=== PATIENT | male | born 1935 | race Caucasian/White ===

== ENCOUNTER 2020-05-03 20:54 | Inpatient (IN) ==
[2020-05-03] MEDS ORDERED: Naloxone 0.4 MG/ML INJ IVP PRN (23:05)
[2020-05-04] MEDS: Pantoprazole 40 MG in 0.9 % Sodium Chloride Mini Bag 100 ML IVC SCH ×5 (00:11→21:03)
[2020-05-04 01:22] LABS: Basophils % 0.7 %; Eosinophils # 0.3 K/mcL (0.0-0.6); Eosinophils % 4.7 %; Hematocrit 27.8 % (37.5-50.1); Hemoglobin 8.8 g/dL (12.9-16.9); Immature Granulocytes % 0.3 % (0-4); Lymphocytes # 1.6 K/mcL (0.6-4.6); Lymphocytes % 26.3 %; Mean Corpuscular HGB Conc 31.7 g/dL (31.6-35.5); Mean Corpuscular Volume 97.9 fL (83.0-100.0); Mean Platelet Volume 10.4 fL (9.4-12.4); Monocytes # 0.6 K/mcL (0.0-1.3); Monocytes % 10.7 %; Neutrophils # 3.4 K/mcL (1.6-8.9); Platelet Count 126 K/mcL (140-400); Red Blood Count 2.84 M/mcL (4.19-5.50); Red Cell Distribution Width 13.3 % (11.5-14.5); Segmented Neutrophils % 57.3 %
[2020-05-04 01:38] LABS: INR 12.5; Prothrombin Time 142.2 Seconds (9.4-12.1)
[2020-05-04 01:43] LABS: Albumin 3.1 g/dL (3.5-5.7); Albumin/Globulin Ratio 1.4 (1.1-2.2); Bilirubin,Total 1.6 mg/dL (0.3-1.0); Calcium 8.6 mg/dL (8.6-10.3); Globulin 2.2 g/dL (2.4-3.5); Magnesium 1.8 mg/dL (1.6-2.6); Phosphorous 2.1 mg/dL (2.7-4.5); Potassium 4.2 mEq/L (3.5-5.1); Total Protein 5.3 g/dL (6.4-8.9)
[2020-05-04 04:25] LABS: Adenovirus Not Detected (Not Detect); Bordetella Pertussis Not Detected (Not Detect); Chlamydophila pneumoniae Not Detected (Not Detect); Coronavirus 229E Not Detected (Not Detect); Coronavirus HKU1 Not Detected (Not Detect); Coronavirus NL63 Not Detected (Not Detect); Coronavirus OC43 Not Detected (Not Detect); Human Metapneumovirus Not Detected (Not Detect); Human Rhinovirus/Enterovirus Not Detected (Not Detect); Influenza A Subtype 2009 H1 Not Detected (Not Detect); Influenza B Not Detected (Not Detect); Mycoplasma pneumoniae Not Detected (Not Detect); Parainfluenza Virus 1 Not Detected (Not Detect); Parainfluenza Virus 2 Not Detected (Not Detect); Parainfluenza Virus 3 Not Detected (Not Detect); Parainfluenza Virus 4 Not Detected (Not Detect); Respiratory Syncytial Virus Not Detected (Not Detect); SARS-CoV-2 Not Detected (Not Detect)
[2020-05-04 06:33] LABS: Hematocrit 25.9 % (37.5-50.1); Hemoglobin 8.2 g/dL (12.9-16.9); Mean Corpuscular HGB Conc 31.7 g/dL (31.6-35.5); Mean Corpuscular Hemoglobin 30.4 pg (28.0-33.3); Mean Corpuscular Volume 95.9 fL (83.0-100.0); Mean Platelet Volume 10.1 fL (9.4-12.4); Platelet Count 119 K/mcL (140-400); Red Cell Distribution Width 13.2 % (11.5-14.5); White Blood Count 5.6 K/mcL (4.3-11.1)
[2020-05-04 06:54] LABS: Prothrombin Time 34.5 Seconds (9.4-12.1)
[2020-05-04 06:55] LABS: Albumin 2.9 g/dL (3.5-5.7); Albumin/Globulin Ratio 1.4 (1.1-2.2); Bilirubin,Total 2.3 mg/dL (0.3-1.0); Calcium 8.6 mg/dL (8.6-10.3); Globulin 2.1 g/dL (2.4-3.5)
[2020-05-04] MEDS ORDERED: Furosemide 20 MG/2 ML VIAL IVP SCH (09:00)
[2020-05-04 10:14] LABS: Bilirubin,Urine Negative (Negative); Blood,Urine Negative (Negative); Clarity,Urine Clear (Clear); Color,Urine Colorless (Yellow); Glucose,Urine (UA) Normal (Normal); Ketones,Urine Negative (Negative); Leukocyte Esterase,Urine Negative (Negative); Nitrite,Urine Negative (Negative); Protein,Urine Negative (Neg-Trace); Specific Gravity,Urine 1.012 (1.010-1.025); Urobilinogen,Urine Normal (Normal)
[2020-05-04 10:40] LABS: Albumin 2.9 g/dL (3.5-5.7); Albumin/Globulin Ratio 1.4 (1.1-2.2); Bilirubin,Direct 0.5 mg/dL (0.0-0.2); Bilirubin,Indirect 2.3 mg/dL (0.0-1.0); Bilirubin,Total 2.8 mg/dL (0.3-1.0); Globulin 2.1 g/dL (2.4-3.5)
[2020-05-04] MEDS ORDERED: Acetaminophen IV 1,000 MG/100 ML INFUS..BTL IVPB ONE (10:46)
[2020-05-04 11:13] LABS: Folate 7.7 ng/mL (3.0-16.0)
[2020-05-04 14:29] LABS: Immature Reticulocyte % 16.3 % (11.0-38.0); Retculocyte # 0.05 M/mcL (0.05-0.10)
[2020-05-04 14:39] LABS: Immature Granulocytes % 0.3 % (0-4); Lymphocytes % 23.7 %; Segmented Neutrophils % 58.1 %
[2020-05-04 14:40] LABS: Basophils % 0.5 %; Eosinophils # 0.3 K/mcL (0.0-0.6); Eosinophils % 4.5 %; Lymphocytes # 1.4 K/mcL (0.6-4.6); Monocytes # 0.8 K/mcL (0.0-1.3); Monocytes % 12.9 %; Neutrophils # 3.4 K/mcL (1.6-8.9)
[2020-05-05 01:35] LABS: Basophils % 0.4 %; Eosinophils # 0.2 K/mcL (0.0-0.6); Eosinophils % 4.7 %; Hematocrit 24.5 % (37.5-50.1); Hemoglobin 7.7 g/dL (12.9-16.9); Lymphocytes # 1.1 K/mcL (0.6-4.6); Lymphocytes % 21.6 %; Mean Corpuscular HGB Conc 31.4 g/dL (31.6-35.5); Mean Corpuscular Hemoglobin 30.8 pg (28.0-33.3); Mean Platelet Volume 9.8 fL (9.4-12.4); Monocytes # 0.6 K/mcL (0.0-1.3); Monocytes % 12.7 %; Platelet Count 117 K/mcL (140-400); Red Cell Distribution Width 13.3 % (11.5-14.5); Segmented Neutrophils % 60.6 %; White Blood Count 4.9 K/mcL (4.3-11.1)
[2020-05-05 01:42] LABS: INR 1.8
[2020-05-05 01:59] LABS: Albumin 2.7 g/dL (3.5-5.7); Albumin/Globulin Ratio 1.4 (1.1-2.2); Bilirubin,Direct 0.5 mg/dL (0.0-0.2); Bilirubin,Indirect 1.8 mg/dL (0.0-1.0); Bilirubin,Total 2.3 mg/dL (0.3-1.0); Magnesium 1.7 mg/dL (1.6-2.6); Potassium 4.1 mEq/L (3.5-5.1); Total Protein 4.7 g/dL (6.4-8.9)
[2020-05-05] MEDS: Pantoprazole 40 MG in 0.9 % Sodium Chloride Mini Bag 100 ML IVC SCH ×3 (02:07→18:42)
[2020-05-05] MEDS: 0.9 % Sodium Chloride 1,000 ML IVC SCH (10:17)
[2020-05-05] MEDS ORDERED: Perflutren Lipid Microsphere 1.3 ML in 0.9 % Sodium Chloride 8.7 ML IVP PRN (17:18)
[2020-05-05] MEDS ORDERED: *HR* Warfarin 4 MG TABLET PO ONE (18:00)
[2020-05-05] MEDS ORDERED: Warfarin perPT PO PRN (18:00)
[2020-05-05 21:45] LABS: Source,Synovial Fluid R KNEE
[2020-05-05] MEDS: rOPINIRole 0.25 MG TABLET PO SCH (22:02)
[2020-05-05 23:09] LABS: Appearance,Synovial Fluid Cloudy (Clear-Hazy); Color,Synovial Fluid Red (Straw)
[2020-05-06 03:38] LABS: Basophils % 0.4 %; Eosinophils # 0.3 K/mcL (0.0-0.6); Eosinophils % 5.4 %; Hematocrit 22.7 % (37.5-50.1); Hemoglobin 7.3 g/dL (12.9-16.9); INR 2.1; Immature Granulocytes % 0.2 % (0-4); Lymphocytes # 1.1 K/mcL (0.6-4.6); Lymphocytes % 23.4 %; Mean Corpuscular HGB Conc 32.2 g/dL (31.6-35.5); Mean Corpuscular Hemoglobin 31.5 pg (28.0-33.3); Mean Corpuscular Volume 97.8 fL (83.0-100.0); Mean Platelet Volume 10.1 fL (9.4-12.4); Monocytes # 0.6 K/mcL (0.0-1.3); Neutrophils # 2.8 K/mcL (1.6-8.9); Platelet Count 121 K/mcL (140-400); Prothrombin Time 23.5 Seconds (9.4-12.1); Red Blood Count 2.32 M/mcL (4.19-5.50); Red Cell Distribution Width 13.4 % (11.5-14.5); Segmented Neutrophils % 57.6 %; White Blood Count 4.8 K/mcL (4.3-11.1)
[2020-05-06 03:51] LABS: Alanine Aminotransferase 7 Units/L (7-52); Albumin 2.7 g/dL (3.5-5.7); Albumin/Globulin Ratio 1.4 (1.1-2.2); Alkaline Phosphatase 58 Units/L (34-104); Aspartate Amino Transferase 15 Units/L (13-39); BUN/Creatinine Ratio 31 (6-26); Bilirubin,Direct 0.5 mg/dL (0.0-0.2); Bilirubin,Indirect 1.7 mg/dL (0.0-1.0); Bilirubin,Total 2.2 mg/dL (0.3-1.0); Blood Urea Nitrogen 40 mg/dL (8-23); Calcium 8.1 mg/dL (8.6-10.3); Carbon Dioxide 29 mEq/L (23-29); Chloride 105 mEq/L (98-107); Globulin 1.9 g/dL (2.4-3.5); Glucose 95 mg/dL (70-105); Magnesium 1.7 mg/dL (1.6-2.6); Osmolality,Calculated 298 (280-300); Sodium 139 mEq/L (136-145); Total Protein 4.6 g/dL (6.4-8.9); eGFR For African Americans > 60 (> 60); eGFR For Non-African Americans 53 (> 60)
[2020-05-06] MEDS: Metoprolol XL (24 HR) Succ 25 MG TAB.ER.24H PO SCH (08:40)
[2020-05-06] MEDS: Furosemide 40 MG TABLET PO SCH (08:40)
[2020-05-06] MEDS: Spironolactone 25 MG TABLET PO SCH (08:40)
[2020-05-06] MEDS: 0.9 % Sodium Chloride 1,000 ML IVC SCH (08:41)
[2020-05-06] MEDS ORDERED: *HR* Warfarin 4 MG TABLET PO ONE (18:00)
[2020-05-06] MEDS: rOPINIRole 0.25 MG TABLET PO SCH (20:24)
[2020-05-06] MEDS ORDERED: Melatonin 3 MG TABLET PO ONE (22:10)
[2020-05-07 08:07] LABS: Basophils % 0.4 %; Eosinophils # 0.2 K/mcL (0.0-0.6); Eosinophils % 3.8 %; Hematocrit 25.4 % (37.5-50.1); Hemoglobin 7.8 g/dL (12.9-16.9); Immature Granulocytes % 0.2 % (0-4); Lymphocytes % 23.1 %; Mean Corpuscular HGB Conc 30.7 g/dL (31.6-35.5); Mean Corpuscular Hemoglobin 30.6 pg (28.0-33.3); Mean Corpuscular Volume 99.6 fL (83.0-100.0); Mean Platelet Volume 9.7 fL (9.4-12.4); Monocytes # 0.6 K/mcL (0.0-1.3); Monocytes % 12.9 %; Neutrophils # 2.7 K/mcL (1.6-8.9); Platelet Count 127 K/mcL (140-400); Red Blood Count 2.55 M/mcL (4.19-5.50); Red Cell Distribution Width 13.7 % (11.5-14.5); Segmented Neutrophils % 59.6 %; White Blood Count 4.5 K/mcL (4.3-11.1)
[2020-05-07 08:11] LABS: INR 4.3
[2020-05-07 08:13] LABS: Prothrombin Time 48.4 Seconds (9.4-12.1)
[2020-05-07 08:25] LABS: Alanine Aminotransferase 7 Units/L (7-52); Albumin 2.8 g/dL (3.5-5.7); Albumin/Globulin Ratio 1.3 (1.1-2.2); Alkaline Phosphatase 60 Units/L (34-104); Aspartate Amino Transferase 14 Units/L (13-39); BUN/Creatinine Ratio 31 (6-26); Bilirubin,Direct 0.3 mg/dL (0.0-0.2); Bilirubin,Indirect 1.1 mg/dL (0.0-1.0); Bilirubin,Total 1.4 mg/dL (0.3-1.0); Blood Urea Nitrogen 40 mg/dL (8-23); Calcium 8.4 mg/dL (8.6-10.3); Carbon Dioxide 34 mEq/L (23-29); Chloride 104 mEq/L (98-107); Globulin 2.1 g/dL (2.4-3.5); Glucose 105 mg/dL (70-105); Osmolality,Calculated 300 (280-300); Potassium 3.9 mEq/L (3.5-5.1); Sodium 140 mEq/L (136-145); Total Protein 4.9 g/dL (6.4-8.9); eGFR For African Americans > 60 (> 60); eGFR For Non-African Americans 52 (> 60)
[2020-05-07] MEDS: Furosemide 40 MG TABLET PO SCH (09:07)
[2020-05-07] MEDS: Cyanocobalamin (B-12) 1,000 MCG TABLET PO SCH (09:08)
[2020-05-07] MEDS: Spironolactone 25 MG TABLET PO SCH (09:08)
[2020-05-07] MEDS: Metoprolol XL (24 HR) Succ 25 MG TAB.ER.24H PO SCH (09:08)
[2020-05-07] MEDS: Aspirin Enteric Coated 81 MG Tablet PO SCH (12:23)
[2020-05-07] MEDS: rOPINIRole 0.25 MG TABLET PO SCH (19:46)
[2020-05-07] MEDS ORDERED: Melatonin 3 MG TABLET PO ONE (23:01)
[2020-05-08 02:45] LABS: Basophils % 0.4 %; Eosinophils # 0.2 K/mcL (0.0-0.6); Eosinophils % 4.8 %; Hemoglobin 7.4 g/dL (12.9-16.9); Immature Granulocytes % 0.2 % (0-4); Lymphocytes # 1.1 K/mcL (0.6-4.6); Lymphocytes % 22.2 %; Mean Corpuscular HGB Conc 30.8 g/dL (31.6-35.5); Mean Corpuscular Hemoglobin 30.8 pg (28.0-33.3); Mean Platelet Volume 9.7 fL (9.4-12.4); Monocytes # 0.6 K/mcL (0.0-1.3); Monocytes % 12.9 %; Platelet Count 141 K/mcL (140-400); Red Cell Distribution Width 13.6 % (11.5-14.5); Segmented Neutrophils % 59.5 %
[2020-05-08 02:52] LABS: INR 7.3; Prothrombin Time 83.4 Seconds (9.4-12.1)
[2020-05-08 03:05] LABS: Albumin 2.9 g/dL (3.5-5.7); Albumin/Globulin Ratio 1.3 (1.1-2.2); Bilirubin,Direct 0.2 mg/dL (0.0-0.2); Bilirubin,Indirect 1.2 mg/dL (0.0-1.0); Bilirubin,Total 1.4 mg/dL (0.3-1.0); Calcium 8.4 mg/dL (8.6-10.3); Globulin 2.2 g/dL (2.4-3.5); Potassium 4.1 mEq/L (3.5-5.1); Total Protein 5.1 g/dL (6.4-8.9)
[2020-05-08] MEDS ORDERED: *HR* Phytonadione 5 MG TABLET PO ONE ×2 (07:49→13:47)
[2020-05-08] MEDS: Aspirin Enteric Coated 81 MG Tablet PO SCH (09:00)
[2020-05-08] MEDS: Spironolactone 25 MG TABLET PO SCH (09:01)
[2020-05-08] MEDS: Cyanocobalamin (B-12) 1,000 MCG TABLET PO SCH (09:01)
[2020-05-08] MEDS: Metoprolol XL (24 HR) Succ 25 MG TAB.ER.24H PO SCH (09:02)
[2020-05-08 11:07] LABS: Immature Reticulocyte % 34.2 % (11.0-38.0); Retculocyte # 0.11 M/mcL (0.05-0.10); Reticulocyte % 4.1 % (1.6-2.8)
[2020-05-08 13:44] LABS: INR 7.5
[2020-05-08 13:46] LABS: Prothrombin Time 85.7 Seconds (9.4-12.1)
[2020-05-08] MEDS ORDERED: 0.9 % Sodium Chloride 250 ML ONE (14:46)
[2020-05-08] MEDS: rOPINIRole 0.25 MG TABLET PO SCH (20:39)
[2020-05-08] MEDS ORDERED: Melatonin 3 MG TABLET PO ONE (20:42)
[2020-05-08 22:12] LABS: Hematocrit 30.1 % (37.5-50.1)
[2020-05-08 22:14] LABS: Hemoglobin 9.5 g/dL (12.9-16.9)
[2020-05-08 22:20] LABS: INR 4.6; Prothrombin Time 52.9 Seconds (9.4-12.1)
[2020-05-09 01:34] LABS: Basophils % 0.4 %; Eosinophils # 0.2 K/mcL (0.0-0.6); Eosinophils % 4.3 %; Hematocrit 27.7 % (37.5-50.1); Hemoglobin 8.6 g/dL (12.9-16.9); Immature Granulocytes % 0.4 % (0-4); Lymphocytes # 1.2 K/mcL (0.6-4.6); Lymphocytes % 24.1 %; Mean Corpuscular Hemoglobin 31.3 pg (28.0-33.3); Mean Corpuscular Volume 100.7 fL (83.0-100.0); Mean Platelet Volume 9.4 fL (9.4-12.4); Monocytes # 0.6 K/mcL (0.0-1.3); Monocytes % 11.5 %; Platelet Count 148 K/mcL (140-400); Red Blood Count 2.75 M/mcL (4.19-5.50); Red Cell Distribution Width 14.6 % (11.5-14.5); Segmented Neutrophils % 59.3 %; White Blood Count 5.1 K/mcL (4.3-11.1)
[2020-05-09 01:46] LABS: INR 2.9; Prothrombin Time 33.2 Seconds (9.4-12.1)
[2020-05-09 01:51] LABS: Alanine Aminotransferase 8 Units/L (7-52); Albumin 2.9 g/dL (3.5-5.7); Albumin/Globulin Ratio 1.4 (1.1-2.2); Alkaline Phosphatase 59 Units/L (34-104); Aspartate Amino Transferase 14 Units/L (13-39); BUN/Creatinine Ratio 32 (6-26); Bilirubin,Direct 0.2 mg/dL (0.0-0.2); Bilirubin,Indirect 1.1 mg/dL (0.0-1.0); Bilirubin,Total 1.3 mg/dL (0.3-1.0); Blood Urea Nitrogen 41 mg/dL (8-23); Calcium 8.2 mg/dL (8.6-10.3); Carbon Dioxide 31 mEq/L (23-29); Chloride 105 mEq/L (98-107); Globulin 2.1 g/dL (2.4-3.5); Glucose 119 mg/dL (70-105); Osmolality,Calculated 301 (280-300); Potassium 4.3 mEq/L (3.5-5.1); Sodium 140 mEq/L (136-145); eGFR For African Americans > 60 (> 60); eGFR For Non-African Americans 52 (> 60)
[2020-05-09 06:53] LABS: Hematocrit 25.7 % (37.5-50.1); Hemoglobin 7.9 g/dL (12.9-16.9)
[2020-05-09] MEDS: Aspirin Enteric Coated 81 MG Tablet PO SCH (07:56)
[2020-05-09] MEDS: Cyanocobalamin (B-12) 1,000 MCG TABLET PO SCH (07:56)
[2020-05-09] MEDS: Spironolactone 25 MG TABLET PO SCH (07:56)
[2020-05-09 13:59] LABS: Lambda Qnt Free Light Chains 31.4 mg/L (5.71-26.30)
[2020-05-09 15:15] LABS: Hematocrit 30.5 % (37.5-50.1); Hemoglobin 9.3 g/dL (12.9-16.9)
[2020-05-09] MEDS: rOPINIRole 0.25 MG TABLET PO SCH (19:33)
[2020-05-09] MEDS ORDERED: Melatonin 3 MG TABLET PO ONE (21:28)
[2020-05-10 05:57] LABS: Alpha 2 Globulin (PEP) 0.71 g/dL (0.48-1.05); Beta Globulin (PEP) 0.68 g/dL (0.48-1.10)
[2020-05-10 06:41] LABS: Basophils % 0.4 %; Eosinophils # 0.3 K/mcL (0.0-0.6); Eosinophils % 4.8 %; Hematocrit 28.6 % (37.5-50.1); Hemoglobin 8.6 g/dL (12.9-16.9); Immature Granulocytes % 0.4 % (0-4); Lymphocytes # 1.3 K/mcL (0.6-4.6); Lymphocytes % 24.9 %; Mean Corpuscular HGB Conc 30.1 g/dL (31.6-35.5); Mean Corpuscular Hemoglobin 29.8 pg (28.0-33.3); Mean Platelet Volume 9.2 fL (9.4-12.4); Monocytes # 0.6 K/mcL (0.0-1.3); Monocytes % 11.9 %; Platelet Count 157 K/mcL (140-400); Red Blood Count 2.89 M/mcL (4.19-5.50); Red Cell Distribution Width 14.6 % (11.5-14.5); Segmented Neutrophils % 57.6 %; White Blood Count 5.2 K/mcL (4.3-11.1)
[2020-05-10 06:55] LABS: Alanine Aminotransferase 10 Units/L (7-52); Albumin/Globulin Ratio 1.4 (1.1-2.2); Alkaline Phosphatase 63 Units/L (34-104); Aspartate Amino Transferase 16 Units/L (13-39); BUN/Creatinine Ratio 34 (6-26); Bilirubin,Direct 0.3 mg/dL (0.0-0.2); Bilirubin,Indirect 0.8 mg/dL (0.0-1.0); Bilirubin,Total 1.1 mg/dL (0.3-1.0); Blood Urea Nitrogen 44 mg/dL (8-23); Calcium 8.7 mg/dL (8.6-10.3); Carbon Dioxide 32 mEq/L (23-29); Chloride 105 mEq/L (98-107); Globulin 2.2 g/dL (2.4-3.5); Glucose 105 mg/dL (70-105); Osmolality,Calculated 306 (280-300); Potassium 4.3 mEq/L (3.5-5.1); Sodium 142 mEq/L (136-145); Total Protein 5.2 g/dL (6.4-8.9); eGFR For African Americans > 60 (> 60); eGFR For Non-African Americans 52 (> 60)
[2020-05-10 06:55] LABS: Kappa Qnt Free Light Chains 47.21 mg/L (3.30-19.40)
[2020-05-10 07:00] LABS: INR 1.3; Prothrombin Time 14.7 Seconds (9.4-12.1)
[2020-05-10 07:17] LABS: IFE Reflexed NOT DONE
[2020-05-10] MEDS: Aspirin Enteric Coated 81 MG Tablet PO SCH (08:36)
[2020-05-10] MEDS: Cyanocobalamin (B-12) 1,000 MCG TABLET PO SCH (08:36)
[2020-05-10] MEDS: Spironolactone 25 MG TABLET PO SCH (08:36)
[2020-05-10] MEDS ORDERED: Furosemide 40 MG/4 ML VIAL IVP ONE (10:55)
[2020-05-10 11:42] VITALS: BP 103/63
[2020-05-10] MEDS ORDERED: FLU Vac QV 20-21 (6Month+)/PF 0.5 ML SYRINGE IM ONE (11:47)
== END 2020-05-10 12:38 | disposition home health service (06) | DRG 811 ==
LOC: 2ANU → SUATTDRO 05-04 17:37
PROVIDERS: ADMIT Family Medicine; ATTEND Internal Medicine